=== PATIENT | female | born 1980 | race Caucasian/White ===

== ENCOUNTER 2021-06-18 05:18 | Inpatient (IN) ==
[2021-06-18] MEDS: NOREPINEPHRINE 8 MG in SODIUM CHLORIDE 0.9% 242 ML IV PRN ×2 (07:07→19:43)
[2021-06-18] MEDS ORDERED: NOREPINEPHRINE 4 MG/4 ML VIAL IV ONE (07:17)
[2021-06-18] MEDS ORDERED: SODIUM BICARBONATE 50 MEQ/50 ML VIAL IV ONE (07:22)
[2021-06-18] MEDS ORDERED: ONDANSETRON 4 MG/2 ML VIAL IV PRN (07:23)
[2021-06-18] MEDS ORDERED: SODIUM CHLORIDE 0.9% 1,000 ML IV ONE (07:25)
[2021-06-18 08:40] LABS: Basophils % 0.2 % (0.0-0.8); Eosinophils # 0.4 10*3/uL (0.0-0.87); Eosinophils % 2.4 % (0.00-10.9); Hematocrit 31.2 VOL% (35.7-47.0); Hemoglobin 10.1 GM/DL (12.0-16.0); Immature Granulocytes % 1.6 %; Immature Granulocytes Absolute 0.25 #; Lymphocytes # 2.4 10*3/uL (1.4-4.0); Lymphocytes % 15.1 % (21.3-54.2); Mean Corpuscular HGB Conc 32.4 GM/DL (32-36); Mean Corpuscular Volume 89.7 FL (87-102); Mean Platelet Volume 9.1 FL (9.6-12.0); Monocytes % 5.8 % (1.7-12.7); Neutrophils % 74.9 % (38.7-73.9); Platelet Count 498 T/CUMM (130-400); Red Blood Count 3.48 MC/CUMM (3.8-5.5); Red Cell Distribution Width 18.3 % (9.3-17.3); White Blood Count 15.5 T/CUMM (4-12)
[2021-06-18 08:49] LABS: INR 0.9; PT Patient Result 10.5 SECS (10.5-12.0)
[2021-06-18 09:15] LABS: Alanine Aminotransferase < 9 U/L (13-56); Albumin 2.6 G/DL (3.4-5.0); Alkaline Phosphatase 83 U/L (45-117); Aspartate Amino Transferase 4 U/L (0-37); Blood Urea Nitrogen 89 MG/DL (7-18); Calcium 7.2 MG/DL (8.5-10.1); Carbon Dioxide 13 MMOL/L (21-32); Estimated Glom Filtration Rate 13 ML/MIN; Glucose 97 MG/DL (74-106); Osmolality,Calculated 288.7 MOS/KG (273-304); Potassium 3.1 MMOL/L (3.5-5.1); Sodium 131 MMOL/L (136-145); Total Protein 6.2 G/DL (6.4-8.2)
[2021-06-18] MEDS: ACETAMINOPHEN 325 MG TABLET PO PRN ×2 (09:48→16:15)
[2021-06-18] MEDS: PANTOPRAZOLE 40 MG TABLET PO SCH (09:48)
[2021-06-18] MEDS ORDERED: POTASSIUM CHLORIDE 20 MEQ TABLET PO ONE ×2 (10:14→17:12)
[2021-06-18 10:54] LABS: Bacteria,Urine Occasional /HPF (Few); Bilirubin,Urine Negative (Negative); Blood, Urine Negative (Negative); Glucose,Urine (UA) Negative (Negative); Ketones,Urine Negative (Negative); Mucus,Urine Occasional /LPF (Occasional); Nitrite,Urine Negative (Negative); Protein,Urine Negative; RBC,Urine 1 /HPF (0-4); Urine Appearance CLEAR (Clear); Urine Color Straw (Yellow); Urine Specific Gravity 1.006 (1.001-1.035); Urine Urobilinogen < 2.0 EU/DL (0.2-1.0)
[2021-06-18] MEDS ORDERED: SODIUM BICARB INJ 150 MEQ in STERILE WATER INJ 850 ML IV SCH (11:00)
[2021-06-18] MEDS: cefTRIAXone 1,000 MG in SODIUM CHLORIDE 0.9% 100 ML IV SCH (11:10)
[2021-06-18] MEDS ORDERED: ENOXAPARIN 30 MG/0.3 ML SYRINGE SUBCUT SCH (12:00)
[2021-06-18] MEDS: SODIUM BICARB INJ 150 MEQ in STERILE WATER INJ 1,000 ML IV SCH ×2 (12:31→22:50)
[2021-06-18] MEDS: NICOTINE 21 MG/24 HR PATCH TRANSDERM PRN (12:48)
[2021-06-18 15:04] LABS: Calcium 7.6 MG/DL (8.5-10.1); Potassium 3.1 MMOL/L (3.5-5.1)
[2021-06-18] MEDS: DESMOPRESSIN 10 MCG NASAL SPRAY 5 ML BOTTLE BOTH NARES SCH ×2 (18:25→22:04)
[2021-06-18 18:45] LABS: Prolactin 26.2 ng/mL (2.8-29.2)
[2021-06-18] MEDS: BUDESONIDE/FORMOTEROL 80-4.5 INHALER 6.9 GM INH SCH (22:04)
[2021-06-18] MEDS: MIRTAZAPINE 15 MG TABLET PO SCH (22:04)
[2021-06-18] MEDS: PREGABALIN 75 MG CAPSULE PO SCH (22:04)
[2021-06-19 04:44] LABS: ABG Base Excess -2.4 MMOL/L (-2.5-2.5); ABG HCO3 22.4 MMOL/L (20-26); ABG Oxygen Saturation 95.7 % (95-100); ABG PCO2 39.6 MM HG (35-48); ABG PH 7.366 (7.35-7.45); ABG PO2 83.1 MM HG (80-95); ABG TCO2 20.1 MMOL/L (23-27); Allen Test Positive; Pt O2 Delivery Device Room Air
[2021-06-19 04:52] LABS: Basophils # 0.1 10*3/uL (0.0-0.2); Basophils % 0.5 % (0.0-0.8); Eosinophils # 0.4 10*3/uL (0.0-0.87); Eosinophils % 4.2 % (0.00-10.9); Hematocrit 31.2 VOL% (35.7-47.0); Hemoglobin 10.6 GM/DL (12.0-16.0); Immature Granulocytes % 0.9 %; Immature Granulocytes Absolute 0.09 #; Lymphocytes # 2.6 10*3/uL (1.4-4.0); Lymphocytes % 25.6 % (21.3-54.2); Mean Corpuscular Volume 86.9 FL (87-102); Mean Platelet Volume 9.1 FL (9.6-12.0); Monocytes % 7.5 % (1.7-12.7); Neutrophils % 61.3 % (38.7-73.9); Platelet Count 524 T/CUMM (130-400); Red Blood Count 3.59 MC/CUMM (3.8-5.5); Red Cell Distribution Width 17.9 % (9.3-17.3)
[2021-06-19 05:08] LABS: Calcium 8.4 MG/DL (8.5-10.1); Osmolality,Calculated 297.4 MOS/KG (273-304)
[2021-06-19 05:09] LABS: Uric Acid 10.8 MG/DL (2.6-6.0)
[2021-06-19] MEDS: ACETAMINOPHEN 325 MG TABLET PO PRN (06:45)
[2021-06-19] MEDS: BUDESONIDE/FORMOTEROL 80-4.5 INHALER 6.9 GM INH SCH ×2 (08:30→20:16)
[2021-06-19] MEDS: PANTOPRAZOLE 40 MG TABLET PO SCH (08:30)
[2021-06-19] MEDS: PREGABALIN 75 MG CAPSULE PO SCH ×2 (08:30→20:13)
[2021-06-19] MEDS: LACTATED RINGERS 1,000 ML IV SCH ×2 (09:31→20:26)
[2021-06-19] MEDS: POTASSIUM CHLORIDE 20 MEQ TABLET PO SCH ×4 (09:36→20:13)
[2021-06-19] MEDS: ARIPiprazole 10 MG TABLET PO SCH ×2 (09:36→09:38)
[2021-06-19] MEDS: ENOXAPARIN 40 MG/0.4 ML SYRINGE SUBCUT SCH (11:23)
[2021-06-19] MEDS: cefTRIAXone 1,000 MG in SODIUM CHLORIDE 0.9% 100 ML IV SCH (11:26)
[2021-06-19] MEDS: NICOTINE 21 MG/24 HR PATCH TRANSDERM PRN (12:44)
[2021-06-19 16:18] LABS: Calcium 8.8 MG/DL (8.5-10.1); Osmolality,Calculated 293.1 MOS/KG (273-304); Potassium 3.6 MMOL/L (3.5-5.1)
[2021-06-19] MEDS: MIRTAZAPINE 15 MG TABLET PO SCH (20:13)
[2021-06-20 04:36] LABS: Basophils % 0.2 % (0.0-0.8); Eosinophils # 0.3 10*3/uL (0.0-0.87); Eosinophils % 3.1 % (0.00-10.9); Hematocrit 27.4 VOL% (35.7-47.0); Hemoglobin 9.2 GM/DL (12.0-16.0); Immature Granulocytes Absolute 0.09 #; Lymphocytes # 2.9 10*3/uL (1.4-4.0); Lymphocytes % 33.3 % (21.3-54.2); Mean Corpuscular HGB Conc 33.6 GM/DL (32-36); Mean Corpuscular Volume 89.5 FL (87-102); Mean Platelet Volume 9.2 FL (9.6-12.0); Monocytes % 9.1 % (1.7-12.7); Neutrophils % 53.3 % (38.7-73.9); Platelet Count 451 T/CUMM (130-400); Red Blood Count 3.06 MC/CUMM (3.8-5.5); Red Cell Distribution Width 18.2 % (9.3-17.3); White Blood Count 8.7 T/CUMM (4-12)
[2021-06-20 04:52] LABS: Calcium 8.2 MG/DL (8.5-10.1); Osmolality,Calculated 283.5 MOS/KG (273-304); Potassium 3.5 MMOL/L (3.5-5.1)
[2021-06-20] MEDS: LACTATED RINGERS 1,000 ML IV SCH (06:27)
[2021-06-20] MEDS: PREGABALIN 75 MG CAPSULE PO SCH ×2 (08:55→20:23)
[2021-06-20] MEDS: ARIPiprazole 10 MG TABLET PO SCH (08:55)
[2021-06-20] MEDS: PANTOPRAZOLE 40 MG TABLET PO SCH (08:55)
[2021-06-20] MEDS: BUDESONIDE/FORMOTEROL 80-4.5 INHALER 6.9 GM INH SCH ×2 (08:55→21:11)
[2021-06-20] MEDS: cefTRIAXone 1,000 MG in SODIUM CHLORIDE 0.9% 100 ML IV SCH (11:53)
[2021-06-20] MEDS: ENOXAPARIN 40 MG/0.4 ML SYRINGE SUBCUT SCH (11:53)
[2021-06-20] MEDS: NICOTINE 21 MG/24 HR PATCH TRANSDERM PRN (11:54)
[2021-06-20] MEDS: MIRTAZAPINE 15 MG TABLET PO SCH (20:22)
[2021-06-21 06:32] LABS: Calcium 8.5 MG/DL (8.5-10.1); Osmolality,Calculated 279.4 MOS/KG (273-304); Potassium 3.3 MMOL/L (3.5-5.1)
[2021-06-21] MEDS ORDERED: POTASSIUM CHLORIDE 20 MEQ TABLET PO ONE (08:21)
[2021-06-21] MEDS: ACETAMINOPHEN 325 MG TABLET PO PRN (08:25)
[2021-06-21] MEDS: PANTOPRAZOLE 40 MG TABLET PO SCH (08:25)
[2021-06-21] MEDS: PREGABALIN 75 MG CAPSULE PO SCH (08:25)
[2021-06-21] MEDS: BUDESONIDE/FORMOTEROL 80-4.5 INHALER 6.9 GM INH SCH (08:25)
== END 2021-06-21 10:23 | disposition home or self-care (01) | DRG 682 ==
LOC: N.ICU 07:05 → SUATTDRO 07:05
PROVIDERS: ADMIT Family Medicine; ATTEND Internal Medicine